=== PATIENT | female | born 1950 | race Caucasian/White ===

== ENCOUNTER 2020-07-23 13:59 | Emergency (ER) | payer MEDICARE, SELFPAY ==
[2020-07-23 14:01] VITALS: BP 124/75; PULSE 63; RESP 17; TEMP 36; O2SAT 93; BMI 35.9
--- NOTE | 2020-07-23 14:18 | VDLE_ITS ---
Reason For Study: Swelling RIGHT GSV is normal. CFV is compressible, spontaneous, phasic, competent and demonstrates normal augmentation. FV is compressible, spontaneous, phasic, competent and demonstrates normal augmentation. POP V is compressible, spontaneous, phasic, competent and demonstrates normal augmentation. T/P Trunk is compressible. PTV is compressible. RT PerV is compressible. Procedure This is a venous duplex using B-mode, color flow and spectral Doppler. Exam performed portable in ED. A preliminary report was called and/or faxed to ED. VL/Venous Duplex US, Unilateral Interpretation Summary There is no evidence of right lower extremity deep vein thrombosis. Right great saphenous vein appears patent and compressible segmentally. Ordering Physician: Haja Nails Performed By: Vivi Lopez RVT
--- NOTE | 2020-07-23 14:18 | RAD_ITS ---
STUDY: X-RAY - RIGHT KNEE REASON FOR EXAM: Female, 70 years old. Injury and pain TECHNIQUE: 4 view(s) of the knee. COMPARISON: None. FINDINGS: Normal visualized distal femur. Normal visualized proximal tibia and fibula. Normal proximal tibiofibular articulation. The patient is status post total knee replacement. There is good alignment. The soft tissue structures are unremarkable. RAD/Knee 4 or More Views IMPRESSION: Status post total knee replacement. Electronically Signed: Maged Rodriguez MD at 14:52 EDT , Service support ,
--- NOTE | 2020-07-23 14:19 | EX.ED.DYSGE1 ---
HPI History of Present Illness Chief Complaint: Lower Extremity Injury Informant: patient Narrative Narrative: 70-year-old female presents with swelling of the right leg and pain over the anterior aspect of the right leg. She states that her symptoms began on Monday. She states that on that day she had pain over the anterior aspect of her leg from her hip to her ankle. Swelling began shortly thereafter. Currently she only has pain from just proximal to the knee to the ankle. She does not recall any injury but she has had a TBI and her family notes that they believe she twisted on Monday and injured the knee. She has had prior knee replacement a couple years ago. Patient denies any posterior calf pain. [facility] Medical History (Updated 07/23/20 @ 16:[address] Haja Nails, DO) Arthritis Traumatic brain injury Tremor Home Medications furosemide [Lasix] 40 mg PO DAILY #5 tab 07/23/20 [Rx Last Taken Unknown] Allergy/AdvReac Type Severity Reaction Status Date / Time acetaminophen [From Vicodin] Allergy Hives Verified 07/23/20 14:00 hydrocodone [From Vicodin] Allergy Hives Verified 07/23/20 14:00 Surgical History (Updated 07/23/20 @ 14:19 by Ángela Gleason) Total knee replacement status Social History Smoking Status: Never smoker ROS ROS ED Constitutional Constitutional ED: Denies chills or weight loss Eyes Eyes: Denies change in vision or diplopia ENT ENT ED: Denies ear pain, rhinorrhea or sore throat Cardiovascular Cardiovascular: Denies chest pain, orthopnea, palpitations or racing heartbeat Respiratory/Chest Respiratory/Chest: Denies cough, dyspnea or orthopnea Gastrointestinal Gastrointestinal: Denies abdominal pain, diarrhea, nausea or vomiting Genitourinary Genitourinary ED: Denies dysuria, hematuria or urinary frequency Musculoskeletal Musculoskeletal: Reports other Details: See history of present illness ; Denies arthralgias or myalgias Integumentary Denies abscess or rash Neurologic Neurologic: Denies headache(s) or weakness Psychiatric Psychiatric: Denies anxiety, depression, suicidal ideation or suicidal thoughts Endocrine Endocrinology: Denies polydipsia, polyphagia or polyuria Allergic/Immunologic Allergic/Immunologic ED: Denies mouth swelling, tongue swelling or urticaria EXAM Physical Exam Const Vital Signs: 07/23/20 14:01 Temperature 96.8 F L Temperature Source Temporal Pulse Rate 63 Respiratory Rate 17 Blood Pressure 124/75 H Blood Pressure Mean 91 Pulse Ox 93 Oxygen Delivery Method Room Air Positive well nourished and well developed General Appearance ED: well developed HEENT Reports normocephalic, head/scalp atraumatic and moist mucous membranes Eyes PERRL and EOMs intact bilaterally Neck no lymphadenopathy, supple and no JVD Resp normal respiratory effort and clear to auscultation bilaterally Cardio regular rate, regular rhythm and no murmurs GI normal to inspection, nondistended, normoactive bowel sounds and non-tender Palpation: soft Back/Spine no CVA tenderness and normal ROM Extremity Extremity Narrative: Patient has mild pitting edema bilaterally but right is greater than left. She has some varicose veins. No significant joint effusion is noted on the knee. She has no pain in the leg with dorsi and plantar flexion of the foot. There is no rash. No palpable cords. Ligamentous exam appears intact. General Extremety ED: Yes edema General Extremity: edema Neuro oriented x3 and CN's II-XII intact bilaterally Sensorium / Orientation: alert Motor Exam: strength 5/5 throughout Psych mental status grossly normal Mood & Affect: Negative for depressed or tearful Skin no rashes or lesions noted and no wounds MDM MDM MDM Narrative Medical decision making narrative: My interpretation of the plain films of the knee is no acute fracture. Duplex ultrasound was obtained. This was also negative for DVT. This certainly could be some additional swelling from a twisting injury superimposed on chronic lymphedema. Patient only notes anterior pain to the knee and leg. The right for her to have some Lasix. Elevate the legs monitor sodium intake. She is to establish primary care and follow-up if not improving return if worsening or concerns Radiography Diagnostic Testing: Radiology Impression Knee X-Ray 07/23/20 14:18 IMPRESSION: Status post total knee replacement. Electronically Signed: Maged Rodriguez MD at 14:52 EDT , Service support , Discharge Plan Triage Chief Complaint: Lower Extremity Injury ED Provider: Haja Nails Dx/Rx/DC Orders Clinical Impression: Acute pain of right lower extremity, Lymphedema Instructions: ED Peripheral Edema, Bilateral Prescriptions: New furosemide [Lasix] 40 mg tablet 40 mg PO DAILY Qty: 5 RF: 0 Primary Care Provider: Care Physician,No Primary Referrals: Ankit Monreal DO [STAFF PHYSICIAN] - 1 Week if not improving Care Physician,No Primary [Primary Care Provider] - Disposition Disposition: Home, self care
== END 2020-07-23 16:31 | disposition home or self-care (01) ==
PROVIDERS: Emergency Provider Emergency Medicine
DX: M79.604 Pain in right leg (principal); I89.0 Lymphedema, not elsewhere classified; M19.90 Unspecified osteoarthritis, unspecified site
CPT/HCPCS: 73564; 93971; 99282

== ENCOUNTER 2021-01-15 09:13 | Emergency (ER) | payer MEDICARE, SELFPAY ==
[2021-01-15 09:14] VITALS: BP 147/62; PULSE 76; RESP 14; TEMP 35.5; O2SAT 96; BMI 35.4
--- NOTE | 2021-01-15 09:56 | RAD_ITS ---
STUDY: X-RAY - RIGHT FOOT CLINICAL: Female, 70 years old. Injury/Pain TECHNIQUE: 3 view(s) of the foot. COMPARISON: None. FINDINGS: There is a plantar calcaneal spur. Normal visualized subtalar, talonavicular, calcaneocuboid, tarsal and tarsometatarsal articulations. Findings suggestive of old fracture of the tarsal navicular bone. Normal metatarsi. Normal metatarsophalangeal joint of the great toe. Normal tibial and fibular sesamoid bones. Normal interphalangeal joint of the great toe. Normal phalanges of the great toe. Normal second through fifth metatarsophalangeal joints. Normal interphalangeal joints and phalanges of the lesser toes. The soft tissue structures are unremarkable. RAD/Foot min 3 Views IMPRESSION: Findings suggestive of old fracture involving the navicular bone. Electronically Signed: Maged Rodriguez MD at 10:56 EST , Service support ,
--- NOTE | 2021-01-15 11:51 | ED.VIS.LOWEX ---
HPI History of Present Illness HPI Narrative: Patient presents with right heel pain that has been getting worse over the past month. Patient states it is gradual. Patient states there was no trauma or injury. Patient describes her pain as throbbing. Patient states that it is worse with ambulation. Patient states nothing seems to make it better. Patient denies any paresthesias or weakness. Patient denies any calf pain. Chief Complaint: Lower Extremity Injury Informant: patient Onset/Context/Timing Onset: Month(s) (1) Context: Gradual Onset Timing: Continuous and Waxes and wanes Quality of Pain: Throbbing Location: Right heel Worsened by: Weightbearing and ambulation Relieved by: Nothing Associated Symptoms Associated Symptoms: Negative for Parasthesia, Weakness and Loss of Funtion PFSH PFSH Medical History Arthritis Traumatic brain injury Tremor Home Medications furosemide [Lasix] 40 mg PO DAILY #5 tab 07/23/20 [Rx Last Taken Unknown] Allergy/AdvReac Type Severity Reaction Status Date / Time acetaminophen [From Vicodin] Allergy Hives Verified 01/15/21 09:13 hydrocodone [From Vicodin] Allergy Hives Verified 01/15/21 09:13 Surgical History Total knee replacement status Social History Smoking Status: Never smoker ROS ROS ED Constitutional Constitutional ED: Denies chills or fever(s) Eyes Eyes: Denies blurry vision or change in vision ENT ENT ED: Denies rhinorrhea or sore throat Cardiovascular Cardiovascular: Denies chest pain or palpitations Respiratory/Chest Respiratory/Chest: Denies cough or dyspnea Gastrointestinal Gastrointestinal: Denies nausea or vomiting Genitourinary Genitourinary ED: Denies dysuria or hematuria Musculoskeletal Musculoskeletal: Denies back pain or neck pain Integumentary Denies abscess or rash Neurologic Neurologic: Denies headache(s) or weakness Allergic/Immunologic Allergic/Immunologic ED: Denies mouth swelling or urticaria EXAM Physical Exam Const Vital Signs: 01/15/21 09:14 Temperature 96 F L Temperature Source Temporal Pulse Rate 76 Respiratory Rate 14 Blood Pressure 147/62 H Blood Pressure Mean 90 Pulse Ox 96 Oxygen Delivery Method Room Air Positive well nourished and well developed General Appearance ED: well developed HEENT Reports moist mucous membranes Neck full ROM Extremity Extremity Narrative: There is tenderness to palpation over the plantar aspect of the right heel. There is no edema or ecchymosis. There is no erythema or warmth. There is no bony crepitance or step-off. There is good range of motion of the right foot and ankle. Pedal pulses are equal bilaterally. Sensation was intact to light touch in all digits. Capillary refill was less than 2 seconds in all digits. Neuro oriented x3, CN's II-XII intact bilaterally, moves all extremities and no sensory deficits noted Sensorium / Orientation: alert Motor Exam: strength 5/5 throughout Psych mental status grossly normal MDM MDM MDM Narrative Medical decision making narrative: X-rays of the right foot were obtained. There are 3 views. On my interpretation, there is no acute fracture. There is an old fracture of the navicular bone. There is also a small plantar spur. There is no dislocation. There is no soft tissue swelling. Radiologist also interpreted the x-rays and agrees. Patient was given a walking boot. Patient was instructed to ice and elevate the right heel. Patient was instructed to take Tylenol or Motrin as needed for pain. Patient was instructed to follow-up with her primary care physician in 5 to 7 days. Patient understood and was agreeable with the plan. Radiography Diagnostic Testing: Clinical Impression(s) from Imaging Studies Foot X-Ray 01/15/21 09:56 IMPRESSION: Findings suggestive of old fracture involving the navicular bone. Electronically Signed: Maged Rodriguez MD at 10:56 EST , Service support , Discharge Plan Triage Chief Complaint: Lower Extremity Injury ED Provider: Manny Anderson Dx/Rx/DC Orders Clinical Impression: Inflammatory pain of right heel Instructions: ED Pain, Acute, Uncertain Cause Prescriptions: No Action furosemide [Lasix] 40 mg tablet 40 mg PO DAILY Qty: 5 RF: 0 Primary Care Provider: Ankit Monreal Referrals: Ankit Monreal, DO [Primary Care Provider] - 3-5 Days Disposition Disposition: Home, Self Care
[2021-01-15 12:05] VITALS: BP 142/78; PULSE 86; RESP 18; O2SAT 95
== END 2021-01-15 12:14 | disposition home or self-care (01) ==
PROVIDERS: Emergency Provider Emergency Medicine; PCP Family Medicine
DX: M79.671 Pain in right foot (principal); M19.90 Unspecified osteoarthritis, unspecified site
CPT/HCPCS: 73630; 99283